=== PATIENT | male | born 1965 | race African-American/Black ===

== ENCOUNTER → 2023-03-22 09:23 | Outpatient (REF) | payer OTHER, MEDICARE, SELFPAY ==
[2023-03-22 10:05] LABS: Potassium 5.6 mmol/L (3.5-5.1)
== END ==
LOC: OLAB 09:23
PROVIDERS: ATTENDING PHYSICIAN Student in an Organized Health Care Education/Training Program
DX: N18.6 End stage renal disease (principal)
CPT/HCPCS: 36415; 84132

== ENCOUNTER → 2023-06-29 11:41 | Outpatient (REF) | payer OTHER, MEDICARE, SELFPAY ==
[2023-06-29 13:05] LABS: Potassium 4.9 mmol/L (3.5-5.1)
== END ==
LOC: OLAB 11:41
PROVIDERS: ATTENDING PHYSICIAN Specialist
DX: N18.6 End stage renal disease (principal)
CPT/HCPCS: 84132

== ENCOUNTER → 2023-09-05 08:47 | Outpatient (REF) | payer MEDICARE, SELFPAY | LOC: RAD 08:47 | PROVIDERS: ATTENDING PHYSICIAN Surgery Vascular Surgery; FAMILY PHYSICIAN Internal Medicine | DX: I77.0 Arteriovenous fistula, acquired (principal) | CPT/HCPCS: 93990 ==

== ENCOUNTER 2023-10-12 07:28 | Day surgery (SDC) | payer MEDICARE, SELFPAY ==
[2023-10-12 07:52] VITALS: BMI 41.1
[2023-10-12 08:14] VITALS: BP 112/63
[2023-10-12 08:23] LABS: Hemoglobin 10.9 g/dL (13.0-18.0); Mean Corpuscular Hgb 32.4 pg (27.0-31.0); Mean Corpuscular Volume 98.2 fL (80.0-94.0); Platelet Count 172 10^3/uL (130-400); Red Blood Cell Count 3.36 10^6/uL (4.70-6.10); Red Cell Dist. Width 16.6 % (11.5-14.5); White Blood Cell Count 5.1 10^3/uL (4.8-10.8)
[2023-10-12 08:28] LABS: INR 2.57; PT 27.9 Sec (11.4-14.6)
[2023-10-12 08:59] LABS: Blood Urea Nitrogen 49 mg/dl (9-20); Carbon Dioxide 28 mmol/L (22-30); Chloride 95 mmol/L (98-107); Estimated Creatinine Clearance 11 ml/min; Glucose 101 mg/dl (70-99); Potassium 4.9 mmol/L (3.5-5.1); Sodium 142 mmol/L (135-145); eGFR 4.81
--- NOTE | 2023-10-12 09:14 | W.SUR.PREOP ---
Pre-Operative Surgical Note
-
I have examined this patient prior to the performance of the scheduled procedure.
The patient's condition is unchanged from the time of the current History and
Physical and the patient is able to undergo the scheduled procedure.
--- NOTE | 2023-10-12 10:21 | W.SUR.POST ---
Surgical Immediate Post Op
Note
Pre Op Diagnosis: End-stage renal disease
Post Op Diagnosis: Same
Procedure Performed: Left upper extremity fistulogram with balloon angioplasty of outflow vein with 10 mm balloon
Primary Surgeon: Lucho
Anesthesia: Local and sedation
Estimated Blood Loss: Less than 2 cc
Fluids: See anesthesia flowsheet
Drains/Shunts: None
Specimens/Cultures: None
Doppler/Duplex/Angio (Y/N): Y
Complications: None
Operative Findings: + Thrill
[2023-10-12 10:30] VITALS: BP 112/63
[2023-10-12 10:45] VITALS: BP 96/73
--- NOTE | 2023-10-12 10:55 | OR.RPT ---
Operative Report
Operative Report
PROCEDURE DATE: 10/12/2023
Preoperative diagnosis:
1. End-stage renal disease on hemodialysis.
2. Concern for failing left upper extremity arteriovenous fistula.
Postoperative diagnosis: Same
Procedure:
1. Duplex assisted cannulation of left upper extremity arteriovenous fistula outflow vein.
2. Left upper extremity fistulogram and central venogram.
3. Balloon angioplasty of outflow vein stenosis with 10 mm angioplasty balloon.
Surgeon: Lucho
Clay Molder: None
Complications: None
Anesthesia: Local, sedation
Indications for procedure:
Patient noted was referred by hemodialysis staff/nursing due to concern at dialysis for an adequate flow through fistula. He notes that they were retrieving clots at times. He was able to complete dialysis and still continues to be able to
complete dialysis. But was referred for fistulogram. Risk/benefit/alternatives of fistulogram were discussed with patient prior to the procedure. He understood all wish to proceed.
Description of procedure:
Patient was identified, brought to the operating room. Placed on the table in the supine position. After the adequate administration of anesthesia, the patient was prepped and draped in the standard surgical fashion. A standard preoperative
timeout was undertaken and everybody was in agreement with the plan.
The cephalic vein outflow of the arteriovenous fistula was punctured under direct duplex ultrasound guidance with a micropuncture kit and a peripheral facing direction in the proximal upper arm. A micropuncture sheath was then advanced over a 0.018
inch wire, and then exchanged over a 0.035 inch wire for a 5 Algerian sheath. Fistulogram demonstrated patent fistula in the vicinity of the sheath site. Next, I advanced a wire (floppy angled hydrophilic) and glide catheter to the perianastomotic
region. Fistulogram demonstrated patent anastomosis, in the proximal outflow segment about 2 to 3 cm beyond the anastomosis there was a segment of about 4 cm that was diffusely mildl to moderately stenotic relative to the rest of the fistula. This
correlated to a site of prior angioplasty as well due to stenosis there prior. I then cannulated the brachial artery proximal to the anastomosis and then advance my catheter. Complete fistulogram was performed that again confirmed the anatomy
here. Confirmed that the anastomosis was widely patent. I now exchanged for a Synchris wire. I then exchanged for a 6 Algerian sheath, and then performed balloon angioplasty of the stenotic segment with a 10 mm angioplasty balloon. There was still a
slight residual waist with the balloon to profile. It did not fully expand in the region of stenosis, but largely did expand. Completion angiogram demonstrated good result. Even though it did not fully expanded 10 mm, I felt that I likely at
least had an 8 mm flow channel which should be sufficient and not stenosis causing. Should not limit flow. Completion central venogram was obtained that demonstrated no evidence of central venous stenosis or additional outflow stenosis. This
point is very satisfied. Catheters and wires were withdrawn. 4-0 Monocryl pursestring stitch was placed around the sheath entry site and the sheath was withdrawn as the stitch was tied down. Manual pressure was also applied to the puncture site.
Hemostasis was fully achieved. There was an excellent thrill in the fistula upon completion. The patient had a palpable left radial pulse upon completion as well.
The patient tolerated procedure well.
[2023-10-12 11:00] VITALS: BP 100/66; BP 109/63
[2023-10-12 11:09] VITALS: BP 109/63
[2023-10-12 11:24] VITALS: BP 105/64
== END 2023-10-12 11:40 | disposition home or self-care (01) ==
LOC: CATH 07:28
PROVIDERS: ATTENDING PHYSICIAN Surgery Vascular Surgery; FAMILY PHYSICIAN Internal Medicine; OTHER PHYSICIAN Internal Medicine
DX: T82.858A Stenosis of other vascular prosthetic devices, implants and grafts, initial encounter (principal); Y83.9 Surgical procedure, unspecified as the cause of abnormal reaction of the patient, or of later complication, without mention of misadventure at the time of the procedure; I12.0 Hypertensive chronic kidney disease with stage 5 chronic kidney disease or end stage renal disease; E11.22 Type 2 diabetes mellitus with diabetic chronic kidney disease; N18.6 End stage renal disease; Z99.2 Dependence on renal dialysis; Z79.82 Long term (current) use of aspirin; Z79.01 Long term (current) use of anticoagulants; Z79.899 Other long term (current) drug therapy; Z87.891 Personal history of nicotine dependence
CPT/HCPCS: 36902; 80048; 85027; 85610; 85730; 86850; 86900; 86901; 93005; C1725; C1769; C1894; Q9967

== ENCOUNTER → 2024-05-28 07:22 | Outpatient (REF) | payer MEDICARE, SELFPAY ==
--- NOTE | 2024-05-28 08:21 | CARDSERVLU ---
Echocardiogram with Lumason completed after protocol screening completed. Allergies verified.
Patent IV site: _Rt FA____
IV site flushed with 0.9% NaCl pre and post administration.
Diluted bolus method utilized to enhance visualization of ventricular mejia.
Total volume given: ___3.0_ mL
Patient tolerated all procedures well without complications.
#22 sabra placed Left wrist. Lumason given. INT d/c'd. pressure held. No bleeding noted.
== END ==
LOC: RCS 07:22
PROVIDERS: ATTENDING PHYSICIAN Internal Medicine; FAMILY PHYSICIAN Internal Medicine
DX: Z95.2 Presence of prosthetic heart valve (principal)
CPT/HCPCS: 93306; Q9950

== ENCOUNTER 2024-06-17 11:08 | Emergency (ER) | payer MEDICARE, SELFPAY ==
[2024-06-17 11:12] VITALS: BP 130/70
[2024-06-17 11:17] VITALS: BP 130/70
[2024-06-17 11:23] LABS: Glucose - Point of Care 82 mg/dl (70-99)
[2024-06-17 11:29] VITALS: BMI 41.4
[2024-06-17 11:35] VITALS: BP 130/72
[2024-06-17 11:49] LABS: Venous Blood Gas B.E. 9.2 mmol/L (-4 to +4); Venous Blood Gas HCO3 35.5 mmol/L (22-27); Venous Blood Gas O2 Sat % 66.9 %; Venous Blood Gas pCO2 56 mmHg (35-48); Venous Blood Gas pH 7.41 (7.32-7.43); Venous Blood Gas pO2 43 mmHg (30-50)
[2024-06-17 12:00] VITALS: BP 109/75
[2024-06-17 12:01] LABS: PT 29.4 Sec (11.4-14.6)
[2024-06-17 12:02] LABS: % Basophils 0.4 % (0-2); % Eosinophils 1.2 % (0-6); % Immature Granulocytes 0.2 % (0-0.5); % Lymphocytes 20.5 % (20.5-51.1); % Monocytes 6.5 % (1.7-9.3); % Neutrophils 71.2 % (42.2-75.2); Absolute Eosinophils 0.1 10^3/uL (0-0.7); Absolute Lymphocytes 1.1 10^3/uL (1.2-3.4); Absolute Monocytes 0.3 10^3/uL (0.1-0.6); Absolute Neutrophils 3.6 10^3/uL (1.4-6.5); Hematocrit 34.1 % (39.0-52.0); Hemoglobin 11.2 g/dL (13.0-18.0); Mean Corp Hgb Conc. 32.8 g/dL (33.0-37.0); Mean Corpuscular Hgb 32.5 pg (27.0-31.0); Mean Corpuscular Volume 98.8 fL (80.0-94.0); Nucleated Red Blood Cells % 0 % (-); Platelet Count 134 10^3/uL (130-400); Red Blood Cell Count 3.45 10^6/uL (4.70-6.10); Red Cell Dist. Width 16.3 % (11.5-14.5); White Blood Cell Count 5.1 10^3/uL (4.8-10.8)
--- NOTE | 2024-06-17 12:16 | ED.GENMED ---
History of Present Illness
<Sage Weaver PA-C - Last Filed: 06/17/24 18:21>
General
Chief Complaint: Change in Mental Status
Time Seen by Provider: 06/17/24 11:13
History of Present Illness
History of Present Illness:
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 Reportedly became acutely altered toward the end of his
dialysis session. Patient informs me he is tired but is unable to provide further history. He answer some questions appropriately but appears to be unable to answer other questions with no clear dysarthria.
Past History
<Sage Weaver PA-C - Last Filed: 06/17/24 18:21>
Past History
ED Past Medical History: HTN, Hypercholesterolemia, IDDM, Renal failure (Dialysis M-W-F) and Other (ESRD, Sleep apnea, Anemia)
ED Past Surgical History: Cardiac (Valve replacement) and Other (Left arm fisutla, Umbilical hernia, AV fistula repair)
Social History
Tobacco: Non-smoker
Alcohol: None
Personal:
Living: with family
Review of Systems
<Sage Weaver PA-C - Last Filed: 06/17/24 18:21>
Review of Systems
Allergies reviewed?: Yes
All Other Systems: ROS reviewed and negative except as documented in HPI and ROS
Phy Exam
<Sage Weaver PA-C - Last Filed: 06/17/24 18:21>
Physical Exam
Physical Exam:
GEN: Well appearing, NAD, WDWN
HEENT: Pupils equal round and reactive to light, oral mucosa moist, no scleral icterus, no nasal congestion
Cardiac: Regular rate
Lung: No respiratory distress, no tachypnea
MSK: No gross deformity or injuries
Skin: Good color, no pallor or jaundice, no rashes
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
grossly intact, BUE strength 5/5 in all gutierrez, sensation intact and symmetric. BLE strength 5/5 in all gutierrez, sensation intact and symmetric
Psych: Calm, cooperative
Course
<Sage Weaver PA-C - Last Filed: 06/17/24 18:21>
Orders/Labs/Results
Orders:
Orders
06/17/24 11:15
EKG [Electrocardiogram (*1)] Urgent
Reason for Study: Fatigue / Weakness
EKG- Treatment ONCE
06/17/24 11:28
CT Head W/o Iv Contrast Urgent
Comment:
Reason For Exam: confusion
06/17/24 11:33
Complete Blood Count/With Diff Urgent
Comprehensive Metabolic Panel Urgent
Prothrombin Time Urgent
Venous Blood Gas Urgent
%Oxygen/Room Air: 97
Abnormal Lab Results
06/17/24
11:33
RBC 3.45 L 10^6/uL
(4.70-6.10)
Hgb 11.2 L g/dL
(13.0-18.0)
Hct 34.1 L %
(39.0-52.0)
MCV 98.8 H fL
(80.0-94.0)
MCH 32.5 H pg
(27.0-31.0)
MCHC 32.8 L g/dL
(33.0-37.0)
RDW 16.3 H %
(11.5-14.5)
Absolute Lymphs (auto) 1.1 L 10^3/uL
(1.2-3.4)
PT 29.4 H Sec
(11.4-14.6)
VBG pCO2 56 H mmHg
(35-48)
VBG HCO3 35.5 H mmol/L
(22-27)
Chloride 96 L mmol/L
(98-107)
Carbon Dioxide 35 H mmol/L
(22-30)
BUN 33 H mg/dl
(9-20)
Creatinine 9.1 H* mg/dL
(0.7-1.3)
Total Protein 8.6 H g/dl
(6.3-8.2)
06/17/24 11:33
06/17/24 11:33
Vital Signs
Initial and Last Documented VS:
Initial Vital Signs
BP
130/70
06/17/24 11:12
Last Documented Vital Signs
Temp Pulse Resp BP Pulse Ox
98.7 F 75 13 125/79 96
06/17/24 11:17 06/17/24 13:30 06/17/24 13:30 06/17/24 13:00 06/17/24 13:30
<Erwin Chu, - Last Filed: 06/17/24 12:41>
Orders/Labs/Results
Orders:
Orders
06/17/24 11:15
EKG [Electrocardiogram (*1)] Urgent
Reason for Study: Fatigue / Weakness
EKG- Treatment ONCE
06/17/24 11:28
CT Head W/o Iv Contrast Urgent
Comment:
Reason For Exam: confusion
06/17/24 11:33
Complete Blood Count/With Diff Urgent
Comprehensive Metabolic Panel Urgent
Prothrombin Time Urgent
Venous Blood Gas Urgent
%Oxygen/Room Air: 97
Abnormal Lab Results
06/17/24
11:33
RBC 3.45 L 10^6/uL
(4.70-6.10)
Hgb 11.2 L g/dL
(13.0-18.0)
Hct 34.1 L %
(39.0-52.0)
MCV 98.8 H fL
(80.0-94.0)
MCH 32.5 H pg
(27.0-31.0)
MCHC 32.8 L g/dL
(33.0-37.0)
RDW 16.3 H %
(11.5-14.5)
Absolute Lymphs (auto) 1.1 L 10^3/uL
(1.2-3.4)
PT 29.4 H Sec
(11.4-14.6)
VBG pCO2 56 H mmHg
(35-48)
VBG HCO3 35.5 H mmol/L
(22-27)
Chloride 96 L mmol/L
(98-107)
Carbon Dioxide 35 H mmol/L
(22-30)
BUN 33 H mg/dl
(9-20)
Creatinine 9.1 H* mg/dL
(0.7-1.3)
Total Protein 8.6 H g/dl
(6.3-8.2)
06/17/24 11:33
06/17/24 11:33
Vital Signs
Initial and Last Documented VS:
Initial Vital Signs
BP
130/70
06/17/24 11:12
Last Documented Vital Signs
Temp Pulse Resp BP Pulse Ox
98.7 F 75 13 125/79 96
06/17/24 11:17 06/17/24 13:30 06/17/24 13:30 06/17/24 13:00 06/17/24 13:30
<Sage Weaver PA-C - Last Filed: 06/17/24 18:21>
MDM/Problems Addressed
MDM/Problems Addressed:
After my personal review of CT imaging I discussed the case with radiology who informs me there is a large subdural collection that is felt to be mixed attenuation likely acute on chronic. No reported history of trauma by the patient or by family
however he did complain of a headache approximately 1 month ago and has been gradually more confused over the past 3 to 4 days according to his daughter. I reviewed imaging and clinical picture with neurosurgery on-call, they will accept him as a
trauma transfer to [facility] for further evaluation. In regards to his warfarin we discussed possible need for emergent reversal in the setting of an INR of 2.8 however given that he has a mechanical aortic valve, neurosurgery will
reevaluate him at their facility and determine need for appropriate anticoagulation reversal at that time. Blood pressure remained stable with no need for antihypertensives.
Due to transport issues the patient ultimately was flown to [facility] for urgent neurosurgical evaluation and management. Remained neurologically stable in the emergency department
<Sage Weaver PA-C - Last Filed: 06/17/24 18:21>
*Critical Care Note
Total Time (30-74mins, 75-104mins- exclusive of procedures): 45 minutes
comment:
Critical care time: 45 minutes
Critical care time was exclusive of: Separately billable procedures, treating other patients, and teaching time
Critical care was necessary to treat or prevent imminent or life-threatening deterioration of the following conditions: Intracranial hemorrhage
Critical care time spent personally by me on the following activities:
[x] Review of old charts
[x] Obtaining history from patient or surrogate
[x] Ordering and review of the laboratory studies
[x] Ordering and review of radiographic studies
[x] Ordering and performing treatments and interventions
[x] Patient patient's response to treatment
[x] Development of treatment plan with patient or surrogate
ED Attending Note
<Sage Weaver PA-C - Last Filed: 06/17/24 18:21>
-
Portions of this chart may have been created with voice recognition software.� Occasional wrong word or��sound alike� substitutions may have occurred due to the inherent limitations of voice recognition software.
<Erwin Chu, DO - Last Filed: 06/17/24 12:41>
ED Attending Note
Patient seen and examined by attending physician: Yes
I performed the substantive portion of visit, reviewed & personally made and approve the management plan that is documented in note by myself or AIYANA.: Yes
ED Attending Note:
59-year-old male who presents with change in mental status. Patient has a history of end-stage renal disease on dialysis. Also has a history of mechanical valve and anticoagulated. Exam: Airway intact but does appear confused. Assessment plan:
Subdural acute on chronic by CT. Is anticoagulated but concerning in light of mechanical valve. Considered Kcentra and rapid reversal but in light of mechanical valve Case was discussed with neurosurgery. Hold on reversal for now and continue to
monitor. Urgent transfer to trauma center
Discharge Plan
Departure
Patient Disposition: Acute [facility]
Date of Disposition: 06/17/24
Time of Disposition: 12:27
Discharge Problem:
Subdural hemorrhage
Prescriptions:
No Action
atorvastatin 20 MG tablet
20 mg PO DAILY
torsemide 20 MG tablet
20 mg PO DAILY
folic acid 1 MG tablet
1 mg PO DAILY
sildenafil [Viagra] 100 MG tablet
100 mg PO PRN PRN (Reason: sexual relations)
calcitriol [Rocaltrol] 0.5 mcg Capsule
0.5 mcg PO DAILY
pantoprazole 40 mg tablet,delayed release (DR/EC)
40 mg PO DAILY
cinacalcet 60 mg tablet
60 mg PO QPM
sevelamer carbonate 800 mg tablet
1,600 mg PO MEALS
warfarin 6 MG tablet
12 mg PO QPM
Rx Instructions:
please follow instructions provided to you by your plant production worker
nifedipine 30 mg Tablet Extended Release
30 mg PO HS Qty: 30 0RF
aspirin 81 mg Tablet,Chewable
81 mg PO DAILY Qty: 0 0RF
lisinopril 20 mg Tablet
20 mg PO DAILY
clonidine HCl 0.1 mg tablet
0.1 mg PO QPM
Vit 3 500 mg-500 mcg -1 mg-12.5 mg Capsule
1 cap PO DAILY
Hospital Transfer
Other hospital: [facility]
I certify that the patient requires transfer: Yes
Discussed case with accepting physician: Rebeca
Reason for transfer: higher level of care
Interventions
Interventions:
*Risk Screen - Suicide Last Done: 06/17/24 11:17
*General Assessment Last Done: 06/17/24 14:05
*Neglect/Abuse Screening Last Done: 06/17/24 11:17
*ED- Fall Risk Assessment Last Done: 06/17/24 11:31
*ED COVID-19 Vaccine History Last Done: 06/17/24 11:31
*Nursing Disposition Last Done: 06/17/24 14:05
ED- Pulmonary Assessment Last Done: 06/17/24 14:05
ED-Psychological Assessment Last Done: 06/17/24 14:05
ED- Neurological Assessment Last Done: 06/17/24 11:31
ED- Cardiac Assessment Last Done: 06/17/24 14:05
ED Swallowing Screen Last Done: 06/17/24 11:31
Discharge Date and Time
Discharge Date/Time: 06/17/24 14:07
Print Language: LATVIAN
[2024-06-17 12:18] LABS: ALT (SGPT) 13 U/L (0-50); AST (SGOT) 20 U/L (17-59); Albumin 4.5 g/dl (3.5-5.0); Alkaline Phosphatase 101 U/L (38-126); Blood Urea Nitrogen 33 mg/dl (9-20); Calcium 9.6 mg/dl (8.4-10.2); Carbon Dioxide 35 mmol/L (22-30); Chloride 96 mmol/L (98-107); Estimated Creatinine Clearance 14 ml/min; Glucose 90 mg/dl (70-99); Potassium 4.2 mmol/L (3.5-5.1); Sodium 142 mmol/L (135-145); Total Bilirubin 0.9 mg/dl (0.2-1.3); Total Protein 8.6 g/dl (6.3-8.2)
[2024-06-17 13:00] VITALS: BP 125/79
== END 2024-06-17 14:07 | disposition short-term general hospital (02) ==
LOC: EMR 11:08
PROVIDERS: Physician Assistant; EMERGENCY PHYSICIAN Emergency Medicine; FAMILY PHYSICIAN Internal Medicine
DX: I62.00 Nontraumatic subdural hemorrhage, unspecified (principal); R40.0 Somnolence; R41.0 Disorientation, unspecified; E11.22 Type 2 diabetes mellitus with diabetic chronic kidney disease; N18.6 End stage renal disease; I12.0 Hypertensive chronic kidney disease with stage 5 chronic kidney disease or end stage renal disease; G47.30 Sleep apnea, unspecified; E78.00 Pure hypercholesterolemia, unspecified; D64.9 Anemia, unspecified; K42.9 Umbilical hernia without obstruction or gangrene; Z99.2 Dependence on renal dialysis; Z79.01 Long term (current) use of anticoagulants; Z79.4 Long term (current) use of insulin; Z95.2 Presence of prosthetic heart valve
CPT/HCPCS: 99291; 70450; 80053; 82805; 82962; 85025; 85610; 93005

== ENCOUNTER → 2024-07-19 12:44 | Outpatient (REF) | payer OTHER, MEDICARE, SELFPAY ==
[2024-07-19 12:57] LABS: Hemoglobin 9.6 g/dL (13.0-18.0)
== END ==
LOC: OLAB 12:44
PROVIDERS: ATTENDING PHYSICIAN Internal Medicine Medical Oncology
DX: N18.6 End stage renal disease (principal)
CPT/HCPCS: 36415; 85018

== ENCOUNTER → 2024-09-24 12:13 | Outpatient (REF) | payer MEDICARE, SELFPAY | LOC: HWRAD 12:13 | PROVIDERS: ATTENDING PHYSICIAN Physician Assistant Medical; FAMILY PHYSICIAN Internal Medicine; REFERRING PHYSICIAN Neurological Surgery | DX: S06.5X0A Traumatic subdural hemorrhage without loss of consciousness, initial encounter (principal) | CPT/HCPCS: 70450 ==

== ENCOUNTER → 2024-12-20 11:32 | Outpatient (REF) | payer MEDICARE, SELFPAY ==
[2024-12-20 15:48] LABS: INR 1.51; PT 18.5 Sec (11.4-14.6)
== END ==
LOC: HWLAB 11:32
PROVIDERS: ATTENDING PHYSICIAN Internal Medicine; FAMILY PHYSICIAN Internal Medicine
DX: Z95.2 Presence of prosthetic heart valve (principal)
CPT/HCPCS: 36415; 85610